=== PATIENT | female | born 1955 | race Caucasian/White ===

== ENCOUNTER → 2016-12-18 | Outpatient (CLI) | payer BC ==
--- NOTE | 2016-12-21 07:43 | MAMMOGRAPHY REPORT ---
BILATERAL DIGITAL SCREENING MAMMOGRAM TOMOSYNTHESIS WITH CAD: 12/18/2016 CLINICAL HISTORY: Routine screening. Patient has no complaints. TECHNIQUE: Breast tomosynthesis in addition to standard 2D mammography was performed. Current study was also evaluated with a Computer Aided Detection (CAD) system. COMPARISON: Comparison is made to exams dated: 12/18/2015 mammogram, 12/13/2014 mammogram, 11/22/2013 ma mmogram, 11/16/2012 mammogram, 11/11/2011 mammogram, and 11/06/2009 mammogram - [facility] nter. BREAST COMPOSITION: The tissue of both breasts is heterogeneously dense, which may obscure small mas ses. FINDINGS: No suspicious masses, calcifications, or areas of architectural distortion are noted in ei ther breast. There has been no significant interval change compared to prior exams. IMPRESSION: ACR BI-RADS CATEGORY 1: NEGATIVE There is no mammographic evidence of malignancy. A 1 year screening mammogram is recommended. The pa tient will receive written notification of the results. Approximately 10% of breast cancers are not detected with mammography. A negative mammographic report should not delay biopsy if a clinically suggestive mass is present. Sarah Meier M.D. /:12/18/2016 16:48:23 Director [facility]: Diana Valdez, [facility] letter sent: Normal 1/2 BI-RADS Code: ACR BI-RADS Category 1: Negative
== END | disposition home or self-care (01) ==
LOC: C.MAMM 16:26
PROVIDERS: ATTEND Obstetrics & Gynecology
DX: Z12.31 Encounter for screening mammogram for malignant neoplasm of breast (principal)

== ENCOUNTER → 2017-06-22 | Outpatient (CLI) | payer BC | END | disposition home or self-care (01) | LOC: C.PAPS 07:51 | PROVIDERS: ATTEND Obstetrics & Gynecology | DX: Z01.419 Encounter for gynecological examination (general) (routine) without abnormal findings (principal) ==

== ENCOUNTER → 2017-12-20 | Outpatient (CLI) | payer BC ==
--- NOTE | 2017-12-21 15:22 | MAMMOGRAPHY REPORT ---
BILATERAL DIGITAL SCREENING MAMMOGRAM TOMOSYNTHESIS WITH CAD: 12/20/2017 CLINICAL HISTORY: Routine screening. Patient has no complaints. TECHNIQUE: The study was acquired using full field digital technology and interpreted from soft copy. Breast tomosynthesis in addition to standard 2D mammography was performed. Current study was also ev aluated with a Computer Aided Detection (CAD) system. COMPARISON: Comparison is made to exams dated: 12/18/2016 mammogram, 12/18/2015 mammogram, 12/13/2014 m ammogram, 11/22/2013 mammogram, 11/11/2011 mammogram, and 11/06/2009 mammogram - [facility] nter. BREAST COMPOSITION: The tissue of both breasts is heterogeneously dense, which may obscure small mass es. FINDINGS: There is a possible area of architectural distortion in the middle one third of the left breast along the posterior nipple line on the MLO view (MLO tomosynthesis slice 47/72), for which additional spot compression tomosynthesis views and possible ultrasound are recommended. There are a few benign-appearing round microcalcifications in the left breast. No other suspicious ma ss, architectural distortion or cluster of microcalcifications is seen. IMPRESSION: ACR BI-RADS CATEGORY 0: INCOMPLETE EVALUATION: NEED ADDITIONAL IMAGING EVALUATION The possible area of architectural distortion in the middle one third of the left breast along the po sterior nipple line on the MLO view needs additional evaluation. The patient will be called to schedule an appointment. Some breast cancers are not detected with mammography. A negative mammographic report should not kate y biopsy if a clinically suggestive mass is present. Teri Osorio M.D. ay/:12/20/2017 17:09:03 Piercer: Diana Valdez, [facility] letter sent: Addl Imaging 0 BI-RADS Code: ACR BI-RADS Category 0: Incomplete Evaluation: Need Additional Imaging Evaluation
== END | disposition home or self-care (01) ==
LOC: C.MAMM 16:40
PROVIDERS: ATTEND Obstetrics & Gynecology
DX: Z12.31 Encounter for screening mammogram for malignant neoplasm of breast (principal); R92.8 Other abnormal and inconclusive findings on diagnostic imaging of breast

== ENCOUNTER → 2018-01-07 | Outpatient (CLI) | payer BC ==
--- NOTE | 2018-01-07 15:41 | MAMMOGRAPHY REPORT ---
UNILATERAL LEFT DIGITAL DIAGNOSTIC MAMMOGRAM TOMOSYNTHESIS AND TARGETED LEFT ULTRASOUND: 01/07/2018 CLINICAL HISTORY: Callback from screening mammogram for possible left breast architectural distortion . TECHNIQUE: The study was acquired using full field digital technology and interpreted from soft copy. Breast tomosynthesis in addition to standard 2D mammography was performed. Spot compression left ML O and full field left ML 2D and tomosynthesis images were obtained. COMPARISON: Comparison is made to exams dated: 12/20/2017 mammogram, 12/18/2016 mammogram, 12/18/2015 m ammogram, 12/13/2014 mammogram, 11/22/2013 mammogram, and 11/16/2012 mammogram - [facility] nter. BREAST COMPOSITION: The tissue of left breast is heterogeneously dense, which may obscure small matthew s. FINDINGS: The previously described possible architectural distortion seen within the left superior breast on th e MLO view does not clearly persist on the additional views. The tissue in this region has the appea jo of normal fibroglandular tissue on the true lateral tomosynthesis images. No suspicious mass o r clear architectural distortion is seen on the additional images. Targeted ultrasound was performed of the left slightly superior breast in the region of the mammograp hic finding. The background parenchymal echotexture is heterogeneous with multiple areas of Burak's ligament shadowing seen, which reduces the sensitivity of the exam. However, no suspicious mass or other suspicious sonographic abnormality is seen. IMPRESSION: ACR-BI-RADS CATEGORY 3: PROBABLY BENIGN, ULTRASOUND ACR-BI-RADS CATEGORY 3: PROBABLY GERALD GN No clear architectural distortion seen within the left superior breast on the additional views, with no suspicious sonographic correlate evident. Findings are probably benign and likely represent alfredo l fibroglandular tissue. Recommend follow-up diagnostic tomosynthesis mammograms and possible ultras ound of the left breast in 6 months to confirm stability. The patient has been verbally notified of the results. Some breast cancers are not detected with mammography. A negative mammographic report should not kate y biopsy if a clinically suggestive mass is present. Sarah Meier M.D. /:01/07/2018 12:02:55 Nutrition Specialist: Diana Valdez, [facility]; Sarah Meier MD, [facility] letter sent: Follow Up Recommended 3 OVERALL STUDY BIRADS: 3 Probably benign
== END | disposition home or self-care (01) ==
LOC: C.MAMM 11:09
PROVIDERS: ATTEND Obstetrics & Gynecology
DX: N64.89 Other specified disorders of breast (principal)